=== PATIENT | female | born 1970 | race Caucasian/White ===

== ENCOUNTER 2022-01-01 06:42 | Day surgery (SDC) | payer MEDICAID ==
[~2022-01-01] VITALS: Ht 154.9 cm; Wt 59.0 kg
[2022-01-01] MEDS ORDERED: SIMETHICONE 40 MG/0.6 ML ML ONE (07:27)
[2022-01-01] MEDS ORDERED: MEPERIDINE 100 MG INJ. 100 MG/ML VIAL ONE (07:27)
[2022-01-01] MEDS ORDERED: MIDAZOLAM HCL 5 MG/5 ML VIAL ONE (07:28)
[2022-01-01 11:27] VITALS: BP_SYST 122
== END 2022-01-01 09:00 | disposition home or self-care (01) ==
LOC: SDS 06:42 → SMU 06:43 → SDS 09:00
PROVIDERS: ATTEND Internal Medicine Gastroenterology
DX: Z12.11 Encounter for screening for malignant neoplasm of colon (principal); K63.5 Polyp of colon; K64.9 Unspecified hemorrhoids; K76.0 Fatty (change of) liver, not elsewhere classified; Z79.899 Other long term (current) drug therapy; Z20.822 Contact with and (suspected) exposure to COVID-19
CPT/HCPCS: 36415; 45385; 88305; 99152; U0003; G0378; J2250; J2175